=== PATIENT | female | born 1990 | race Caucasian/White ===

== ENCOUNTER → 2023-03-31 09:39 | Outpatient (CLI) | payer OTHER, MEDICAID, SELFPAY ==
[2023-03-31 15:01] LABS: Urine N gonorrhoeae NOT DETECTED
[2023-03-31 15:25] LABS: Urine Chlamydia NOT DETECTED
== END ==
PROVIDERS: Visit Provider Obstetrics & Gynecology
DX: Z34.80 Encounter for supervision of other normal pregnancy, unspecified trimester (principal); Z3A.10 10 weeks gestation of pregnancy
CPT/HCPCS: 87491; 87591

== ENCOUNTER → 2023-04-28 08:29 | Outpatient (CLI) | payer OTHER, MEDICAID, SELFPAY ==
[2023-04-28 09:30] LABS: Add Manual Diff / Slide Review NO; Basophils Absolute Auto 0 /uL (0-100); Basophils Percent Auto 0.2 % (0-2); Eosinophils Absolute Auto 100 /uL (0-450); Eosinophils Percent Auto 0.8 % (2-4); Hematocrit 39.5 % (36-46); Hemoglobin 13.8 g/dL (12.0-16.0); Lymphocytes Absolute Auto 1100 /uL (1100-4500); Lymphocytes Percent Auto 11.6 % (25-40); Mean Corpuscular Hemoglobin 30.8 PG (26-34); Monocytes Absolute Auto 500 /uL (0-900); Monocytes Percent Auto 4.8 % (3-14); Neutrophils Absolute Auto 8100 /uL (1500-7000); Neutrophils Percent Auto 82.6 % (50-75); Platelet Count 275 X10^3/uL (150-400); Red Blood Cell Count 4.49 X10^6/uL (4.0-5.2); White Blood Cell Count 9.8 X10^3/uL (4.5-11.0)
[2023-04-28 10:27] LABS: Hepatitis B Surface Antigen NEGATIVE s/c (NEGATIVE); Rubella Antibody IgG 20.3 IU/mL (>15)
[2023-04-28 10:42] LABS: HIV 1 & 2 Ab/Ag 4th Gen Combo NEGATIVE (NEGATIVE); Hep C Virus Ab w/Reflex Quant NEGATIVE s/c (NEGATIVE)
[2023-04-29 11:09] LABS: Varicella IgG Antibody 1548 index (Immune >165)
[2023-04-30 09:04] LABS: RPR Screen Non Reactive (Non Reactive)
== END ==
PROVIDERS: Referring Provider Obstetrics & Gynecology; Visit Provider Obstetrics & Gynecology
DX: Z34.80 Encounter for supervision of other normal pregnancy, unspecified trimester (principal)
CPT/HCPCS: 36415; 80055; 86787; 86803; 86850; 86900; 86901; 87086; 87389

== ENCOUNTER → 2023-05-26 10:21 | Outpatient (CLI) | payer OTHER, MEDICAID, SELFPAY ==
--- NOTE | 2023-05-26 10:22 | DI.US.S_ITS ---
PROCEDURE: US OB >= 14 WEEKS FETUS INDICATIONS: 20 week anatomy OUTSIDE/PRIOR DATING DATA: Last menstrual period (LMP): 12/28/2022. LMP-based estimated date of delivery (SILVINO): 10/04/2023. First dating scan (date and location): 03/31/2023. Estimated date of delivery (SILVINO) from first dating scan: 10/04/2023. The calculations are made using the working SILVINO of 10/04/2023. TECHNIQUE: Real-time scanning was performed of the fetus, with image documentation and biometric measurements. Endovaginal scanning: No COMPARISON: [facility] [place], [place], OB >= 14 WEEKS FETUS, 03/31/2023, 8:56. FINDINGS: General: A single living intrauterine gestation is present. Presentation: Breech. Placenta: Placental position is right anterior , without previa. Amniotic fluid index: 14.3 cm, normal range is 5-24 cm. Single deepest vertical pocket is 5.1 cm. heart rate: 153 beats per minute. Maternal cervical canal: 3.9 cm long. Normal lower limit is 2.5 cm. biometrics: Biparietal diameter: 5.0 cm, 21 week 1 day Head circumference: 19.1 cm, 21 week 3 day Abdominal circumference: 16.6 cm, 21 week 5 day Femur length: 16.6 cm, 21 week 5 day Clinically estimated gestational age: 3.5 cm, 20 week 6 day Composite gestational age from present scan: 21 week 2 day Estimated weight and percentile: 21 week 2 day Anatomic survey: Neuro: Ventricles are non-dilated at less than 10 mm. Cisterna magna is normal at 3-11 mm. Cerebellum is normal in size and morphology. Nuchal skin fold: Normal at less than 6 mm between 14-21 weeks gestational age. Face: Nose and lips, facial profile are normal. Spine: No evidence for spina bifida. Heart: 4-chambered heart is present, ventricular outflow tracks not well seen Diaphragm: Diaphragm is intact. Stomach: Left-sided stomach is present. Kidneys: No hydronephrosis. Normal is less than 5 mm in 2nd trimester, less than 7 mm in 3rd trimester. Cord: 3-vessel cord has orthotopic insertion. Bladder: Normal in size. Extremities: All 4 extremities identified. IMPRESSION: Single live intrauterine consistent with 21 week 3 day gestation by current ultrasound Left ventricular outflow tract not well seen by current ultrasound. Attention on follow-up. Otherwise, anatomic survey unremarkable. Approved by: Jr Trejo M.D. on 05/26/2023 at 18:36
== END ==
LOC: US 10:22
PROVIDERS: Referring Provider Obstetrics & Gynecology; Visit Provider Obstetrics & Gynecology
DX: Z34.82 Encounter for supervision of other normal pregnancy, second trimester (principal); Z3A.21 21 weeks gestation of pregnancy
CPT/HCPCS: 76811

== ENCOUNTER → 2023-06-28 11:22 | Outpatient (CLI) | payer OTHER, MEDICAID, SELFPAY ==
[2023-06-28 13:59] LABS: Hematocrit 37.9 % (36-46); Hemoglobin 13.4 g/dL (12.0-16.0)
[2023-06-28 14:19] LABS: GTT (PREG) 1 Hour PP 50gm Dose 116 mg/dL (76-139)
== END ==
PROVIDERS: Referring Provider Specialist; Visit Provider Specialist
DX: Z34.82 Encounter for supervision of other normal pregnancy, second trimester (principal); Z3A.26 26 weeks gestation of pregnancy
CPT/HCPCS: 36415; 82950; 85014; 85018

== ENCOUNTER → 2023-09-15 09:52 | Outpatient (CLI) | payer OTHER, MEDICAID, SELFPAY ==
[2023-09-16 13:57] LABS: Strep Grp B PCR NEG for Grp B Strep
== END ==
PROVIDERS: Visit Provider Obstetrics & Gynecology
DX: Z34.83 Encounter for supervision of other normal pregnancy, third trimester (principal); Z3A.37 37 weeks gestation of pregnancy
CPT/HCPCS: 87653

== ENCOUNTER 2023-09-26 16:22 | Inpatient (IN) | payer OTHER, MEDICAID, SELFPAY ==
--- NOTE | 2023-09-26 17:16 | PM.OBHP.1 ---
OB HPI Date/Time Date of admission: 09/26/23 Date Patient Seen: 09/26/23 Time Patient Seen: 17:17 History of Present Condition Chief complaint: LABOR : 5 Para: 2 Estimated Date of Delivery: 10/04/23 Estimated Gestational Age (weeks): 38+6 Narrative: Sunshine Yuan is a 33 year old female Comments: presented to triage with ruptured membranes around 1400 today. Some mild contractions, no vaginal bleeding. Indications Operative indications ( section): previous uterine surgery History of Present care: good care Dating criteria: LMP confirmed by 1st trimester US Ultrasounds: normal mid trimester US Obstetrical complications: none Medical complications: none Narrative: Specific Issues/Plans RPL, 81mg ASA, will hold due to bleeding Bleeding in first trimester Planned repeat C/S (#3), tentatively 09/29/23 Drew Assigned to Jeaneth/Fojhonatan Preadmission Labs Blood type: O (+) positive -: Antibody screen: negative, Cystic fibrosis screen: unknown, GBS status: negative, HBsAG: negative, HIV: negative, HSV 1: unknown, HSV 2: unknown and RPR/VDLR: negative -: Chlamydia screen: not detected and Gonorrhea screen: not detected -: Rubella: immune and Varicella: immune HCT: 37.4 HCAB: negative PAP: Normal 1 hr GTT: 116 Evaluation Evaluation Baseline heart rate: 125 Variability: Moderate (11-25) monitor accelerations: Present Monitor Decelerations: Absent Uterine Contraction Intensity: Mild Status: Category l Position of cervix: posterior Consistency: soft Non-invasive Membranes Rupture Test: positive PFSH Medical History (Updated 04/30/23 @ 20:57 by Day Eric MD) Spinal headache Surgical History (Updated 03/31/23 @ 09:04 by Day Eric MD) [place] teeth extracted Status post delivery (07/11/14) Family History (Updated 03/27/23 @ 08:08 by Laila Ralph RN) Mother Hypothyroidism Grandfather Prostate cancer Aunt Brain cancer Social History marital status: number of children: 2 household members: spouse and children lives independently: Yes caregiver/support person: Yes housing: house pets and animals: Yes (dog) education level: college (some college) occupational status: unemployed current occupational exposures/hazards: No special nancy needs: No travel history: recent ([place]) seatbelt use: always helmet use: Yes water heater temp set < 120 deg: Yes working smoke detector in home: Yes fire extinguisher in home: Yes carbon monox detector in home: Yes firearms in home: Yes firearms unloaded and locked: Yes do you feel safe at home: Yes Smoking Status: Never smoker second hand exposure: No alcohol intake: former substance use type: marijuana (edibles when not /) during the past year weight has: other (back to normal non- weight) well-balanced diet: daily or most days daily servings fruits/ve or more times/day caffeine: Yes (2 shots espresso and 2 shots decaf/day) Type(s) of exercise: walking Meds Home Medications and Allergies Home Medications Medication Instructions Recorded Confirmed Type L.acid-B.animalis-B.bifidum-B.infantis cap PO 03/27/23 09/22/23 History 50 billion cell capsule,del rel (Fortify [place] Probiotic) [id number] 400 mcg-om3 35 mg-dha 25 tab PO 03/27/23 09/22/23 History mg-epa 5 mg-fish oil chewable tablet Allergies Allergy/AdvReac Type Severity Reaction Status Date / Time adhesive AdvReac Intermediate skin Verified 09/22/23 08:05 breakdown wheat AdvReac Mild constipatio Verified 09/22/23 08:05 n MMR vaccine AdvReac Intermediate Local Uncoded 09/22/23 08:05 infection Review of Systems Review of Systems ROS: Yes All systems reviewed with the patient and are negative except as otherwise documented OB Exam HENMT Head: normal to inspection Resp Effort & Inspection: normal respiratory effort and able to speak in complete sentences Cardio Rate: regular rate Rhythm: regular rhythm Extremities Lower extremity: Yes normal to inspection GI Other: gravid, nontender, nondistended Objective Labs 09/26/23 16:50 Assessment and Plan Assessment and Plan Assessment and Plan narrative: 33yo at 38+6wks admitted with ruptured membranes in early labor. -CBC, T&S on admission -continuous EFM -anesthesia consult -GBS neg -PPH risk low -VTE risk low, SCDs with spinal -plan for repeat as soon as all teams ready consent: It was explained to the patient that a section is a surgery to deliver the baby through an incision in the abdominal wall and uterus.? All procedures can be associated with risk and unforeseen complications, which can be immediate or delayed.? Risks and complications of section include, but are not limited to:? infection of the uterus, pelvic organs, or skin; inadvertent injury to internal organs such as the bowel, bladder, or possibly even the baby; blood loss, transfusion, and/or life-threatening hemorrhage requiring hysterectomy; blood clots in the legs, pelvic organs, or lungs; adverse reaction to medications or anesthesia during surgery; development of placenta accreta spectrum in a subsequent ; and increased risk of section in a subsequent . Time-Based Coding :: [30min] spent with patient and on the chart (including review of chart, obtaining history, exam, reviewing outside data, placing orders, documenting exam and treatment plan, and counseling patient) on [09/26/23].
[2023-09-26 17:17] LABS: Add Manual Diff / Slide Review NO; Basophils Absolute Auto 0 /uL (0-100); Basophils Percent Auto 0.5 % (0-2); Eosinophils Absolute Auto 100 /uL (0-450); Eosinophils Percent Auto 0.9 % (2-4); Hematocrit 37.4 % (36-46); Hemoglobin 12.9 g/dL (12.0-16.0); Lymphocytes Absolute Auto 1800 /uL (1100-4500); Lymphocytes Percent Auto 24.8 % (25-40); Mean Corpuscular HGB Conc 34.5 % (30-36); Mean Corpuscular Hemoglobin 30.9 PG (26-34); Mean Corpuscular Volume 89.7 fL (80-100); Monocytes Absolute Auto 300 /uL (0-900); Monocytes Percent Auto 4.5 % (3-14); Neutrophils Absolute Auto 5000 /uL (1500-7000); Neutrophils Percent Auto 69.3 % (50-75); Platelet Count 244 X10^3/uL (150-400); Red Blood Cell Count 4.16 X10^6/uL (4.0-5.2); Red Cell Distribution Width 12.6 % (11.6-14.8); White Blood Cell Count 7.3 X10^3/uL (4.5-11.0)
[2023-09-26] MEDS: CITRIC ACID/SODIUM CITRATE 15 ML SOLUTION 30 ML PO (17:34)
[2023-09-26] MEDS: LACTATED RINGERS 1,000 ML 999 ML IV ×2 (17:34→18:14)
[2023-09-26 17:38] VITALS: BP 132/74
[2023-09-26] MEDS: CEFAZOLIN 2 GM/100 ML PREMIX 100 ML IV (17:55)
--- NOTE | 2023-09-26 18:28 | SUR.OPER ---
Supine on Padded OR bed, head on pillow, safety belt at thigh, arms secured on padded arm boards at <90 degrees abduction. Bump under right buttock. Legs uncrossed with pillow under knees, gel pad to heels, tape over blanket to lower legs.
--- NOTE | 2023-09-26 19:04 | PM.OBCS.1 ---
Operative Date/Time/Diagnoses Date of procedure: 09/26/23 Time of procedure: 18:00 Pre-op diagnosis: 1. Guzman intrauterine gestation at 38+6wks 2. Spontaneous rupture of membranes 3. History of delivery Post-op diagnosis: same Procedure & Clinicians Procedure: Repeat low transverse section Same procedure as scheduled: Yes Indications: 33yo at 38+6 weeks EGA admitted on 09/26/23 for spontaneous rupture of membranes. Given her history of two prior deliveries, she was counseled and consented for RLTCS. Surgeon: Rimma Williamson Click Yes if Unassisted: No Beater Room Supervisor: Fanta Burton Reason for Beater Room Supervisor: Beater Room Supervisor was necessary for timely, efficient, and safe completion of the procedure. Anesthesia Type: Spinal Operative Notes Findings: Very thin uterine window noted in the lower uterine segment. Normal appearing bilateral fallopian tubes and ovaries. Bloodly fluid noted with delivery, with suspicion for placental abruption. Delivery productive of a viable male in cephalic presentation with APGARS 8/9 and weighing 3289g. Closure Type: primary Specimen(s): cord blood Intraoperative meds administered: Duramorph Applied: Catheter Estimated Blood Loss (mL): 700 Blood products transfused: none Procedure in detail: The risks, benefits, indications and alternatives of the procedure were reviewed with the patient and informed consent was obtained. The patient was taken to the operating room where spinal anesthesia was obtained without difficulty and was found to be adequate. Sequential compression devices were placed bilaterally for VTE prophylaxis. She was then prepped and draped in the normal, sterile fashion in the dorsal supine position with a leftward tilt. She received 2g Ancef for surgical prophylaxis. A Pfannenstiel skin incision was then made with the scalpel and carried through to the underlying layer of fascia. The fascia was incised in the midline and the incision extended laterally with the Crandall scissors. The superior aspect of the fascial incision was then grasped, tented up with Macie clamps and the rectus muscles were dissected off sharply. During this dissection, the peritoneum was entered. The omentum was noted to be adhesed to the lower abdominal wall, thus this was taken down with Bovie cautery. The peritoneal incision was then extended horizontally, superiorly and inferiorly, with good visualization of the bladder. The bladder blade was then inserted. A very thin uterine window was noted in the lower uterine segment. The lower uterine segment was incised in a transverse fashion with the scalpel. The uterine incision was then extended manually in a cephalad/caudad direction. Bloody fluid was noted, with some dark clots. The bladder blade was then removed. The ?s head delivered atraumatically through the hysterotomy without difficulty, followed by the body.? The cord was doubly clamped and cut after a 60sec delay with the handed off to the waiting pediatrics team. The cord then avulsed during delivery of the placenta, thus the placenta was manually extracted. The uterus was then exteriorized and cleared of all clots and debris. The uterine incision was repaired with 0-vicryl in a running, locked fashion with excellent hemostasis achieved. The right side of the lower uterine segment was noted to have a 3cm long hematoma, which was observed for a few minutes, and was not expanding. The uterus was then returned to the abdomen and the hysterotomy was again noted to be hemostatic. The right sided uterine hematoma was also noted to be the same size. The paracolic gutters were cleared of all clot and debris. The fascia was reapproximated with 0-PDS in a running fashion. The subcutaneous layer was closed with 3-0 vicryl in simple, interrupted sutures. The skin was closed with 4-0 monocryl in a subcuticular fashion. Dermabond was then applied to the incision. At the completion of the case, a Crede maneuver was performed with good uterine tone and minimal vaginal bleeding noted.? The patient tolerated the procedure well. Sponge, lap and needle counts were correct x3. The patient was taken to the recovery room in stable condition. Complications: none Baby 1: Gender: Male score (1 min): 8 score (5 min): 9 weight: 7 lb 4.016 oz Post-operative Condition: stable Disposition: PACU Aftercare: routine postop
[2023-09-26 19:05] VITALS: BP 92/58; PULSE 68; RESP 12; TEMP 36.4; O2SAT 99
[2023-09-26 19:10] VITALS: BP 100/68; PULSE 68; RESP 15; O2SAT 99
[2023-09-26 19:18] VITALS: BP 102/67; PULSE 65; RESP 17; O2SAT 99
[2023-09-26] MEDS: ACETAMINOPHEN 325 MG TABLET 650 MG PO (20:05)
[2023-09-26] MEDS: KETOROLAC 30 MG/ML VIAL IV (20:06)
[2023-09-26] MEDS: diphenhydrAMINE 50 MG/ML VIAL 25 MG IV (22:52)
[2023-09-27] MEDS: KETOROLAC 30 MG/ML VIAL IV ×3 (02:30→15:16)
[2023-09-27] MEDS: ACETAMINOPHEN 325 MG TABLET 650 MG PO ×3 (02:31→15:16)
[2023-09-27] MEDS: DOCUSATE 100 MG CAPSULE PO (08:43)
[2023-09-27] MEDS: PRENATAL VIT,CALC/IRON/FOLIC 1 TABLET 1 TAB PO (08:44)
--- NOTE | 2023-09-27 12:24 | P.DS_ITS ---
Discharge Providers Provider Date of admission: 09/26/23 16:22 Discharge Date: 09/27/23 Primary care physician: Doctor Yocasta MD Consults: 09/26/23 19:40 Consult to Revenue Agent Routine Comment: Discharge provider: Polly Sherman MD Summary Hospital Course Date Patient Seen: 09/27/23 Time Patient Seen: 12:24 Diagnoses: s/p RCS Hospital Course: 33yo at 38w6d presented to facility following SROM and onset of active labor immediately prior to active labor. Pt was rapidly taken to OR and underwent unscheduled repeat section without complication, noted very tenuous MICHELE per operative dictation, EBL 700. Patient rapidly met all discharge milestones and requested expedited discharge to home on POD1 tolerating full diet, ambulating and voiding independently without assistance, pain well controlled with minimal analgesia. cleared per peds and patient discharged to home with strict precautions today, POD1 Peripartum Data Infant Delivery Method: Section complications: none [place] 1: Gender: Male Disposition of : home Discharge Diagnosis (1) delivery delivered: Start Date: 09/27/23 Start Time: 12:31 Status: Acute Status at Discharge Cognitive/behavioral status at discharge: oriented Functional status at discharge: independent ambulation Overall status at discharge: patient is back to baseline Time Spent with Patient Time attestation: Total time spent providing and/or coordinating discharge services: 30 Objective Labs 09/26/23 16:50 Labs: Laboratory Results - last 24 hr 09/26/23 16:50 WBC 7.3 RBC 4.16 Hgb 12.9 Hct 37.4 MCV 89.7 MCH 30.9 MCHC 34.5 RDW 12.6 Plt Count 244 Neut % (Auto) 69.3 Lymph % (Auto) 24.8 L [place] % (Auto) 4.5 Eos % (Auto) 0.9 L Baso % (Auto) 0.5 Neut # (Auto) 5000 Lymph # (Auto) 1800 [place]ern # (Auto) 300 Eos # (Auto) 100 Baso # (Auto) 0 Blood Type O Positive Antibody Screen Negative Exam Vital Signs (past 8 hours): BP 105/58 HR 75 RR 16 Tc 98.0F SpO2 99% RA Oxygen Delivery Method Room Air Const General: cooperative, healthy appearing and comfortable Nutritional Appearance: average body habitus Resp Effort & Inspection: normal respiratory effort Cardio Pulses: normal peripheral pulses GI Other: fundus firm << umb, pfannensteil incision c/d/i without erythema or induration Other: deferred Skin General: no rashes or lesions noted Neuro General: patient alert, patient awake and patient oriented x3 Extrem General: normal to inspection Psych Mental Status: mental status grossly normal Judgment: judgment good Discharge Plan Discharge Plan Patient Disposition: Home Provider Discharge Comment: No heavy lifting >10lbs (baby + carrier) for 6 weeks Discharge orders & Medications Prescriptions: New acetaminophen 325 mg Tablet 650 mg PO Q6H Qty: 30 0RF ibuprofen 600 mg Tablet 600 mg PO Q6H Qty: 30 0RF oxycodone 5 mg Tablet 5 mg PO Q4H PRN (Reason: Pain, Moderate (4-6)) Qty: 10 0RF Continued [id number] oil 400 mcg-35 mg -25 mg-5 mg tablet,chewable See Rx Instructions .ROUTE .COMPLEX Rx Instructions: per provider order Fortify [place] Probiotic 50 billion cell capsule,delayed release(DR/EC) See Rx Instructions .ROUTE .COMPLEX Rx Instructions: per provider order Follow up/Referrals: Doctor Rust MD [Primary Care Provider] - Diet/Activity/Treatments Diet: Regular Skin/Wound/Dressing Care Dressing: No dressing is needed. Keep area clean and dry. Notify your doctor with any signs of redness, discharge or changes in the skin Visit Report/Discharge Packet Stand Alone Forms: Patient Portal/API, Stroke Signs & Symptoms Discharge Data Primary Care Provider: Doctor Yocasta
== END 2023-09-27 18:21 | disposition home or self-care (01) | DRG 540 ==
PROVIDERS: Student in an Organized Health Care Education/Training Program; Admitting Provider Obstetrics & Gynecology; Referring Provider Obstetrics & Gynecology; Visit Provider Obstetrics & Gynecology
PROC: 10D00Z1 Extraction of Products of Conception, Low, Open Approach (ICD-10-PCS; CPT 59514; principal; 2023-09-26 19:00)
DX: O34.211 Maternal care for low transverse scar from previous cesarean delivery (principal); Z3A.38 38 weeks gestation of pregnancy; Z37.0 Single live birth
CPT/HCPCS: 36415; 59050; 84112; 85025; 86850; 86900; 86901; G0379; J0690; J1200; J1885; J2274; J3010